=== PATIENT | female | born 1990 | race Caucasian/White ===

== ENCOUNTER 2017-02-27 21:26 | Emergency (ER) | payer OTHER ==
[~2017-02-27] VITALS: Ht 157.5 cm; Wt 92.9 kg
[~2017-02-27 21:26] MED LIST: CEPH-443 PO; NAPR-260 PO; ONDA4TAB8 PO; TRAM50TA2 PO
[2017-02-27 21:34] VITALS: Ht 157.5 cm; Wt 92.9 kg
[2017-02-27 23:06] LABS: URINE BLOOD (Dip) POC Trace-intact (NEGATIVE)
[2017-02-27] MEDS ORDERED: SODIUM CHLORIDE 0.9% 1L BAG IV* STA (23:22)
[2017-02-27] MEDS ORDERED: CEFTRIAXONE 1 GM/50 ML (PMX) 50 ML IVPB STA (23:22)
[2017-02-27 23:49] LABS: BASOPHILS % 0.1 % (0.0-2.0); EOSINOPHILS # 0.2 10^3/ul (0.0-0.5); EOSINOPHILS % 1.9 % (0.0-7.0); HEMATOCRIT 43.1 % (37.0-47.0); HEMOGLOBIN 14.5 g/dl (12.0-16.0); LYMPHOCYTES # 0.8 10^3/ul (0.8-2.9); LYMPHOCYTES % 8.6 % (15.0-51.0); MEAN CORPUSCULAR HEMOGLOBIN 27.9 pg (29.0-33.0); MEAN CORPUSCULAR HGB CONC 33.6 g/dl (32.0-37.0); MEAN PLATELET VOLUME 10.3 fl (7.4-10.4); MONOCYTE # 0.3 10^3/ul (0.3-0.9); MONOCYTES % 3.1 % (0.0-11.0); NEUTROPHIL # 7.7 10^3/ul (1.6-7.5); PLATELET COUNT 357 10^3/UL (140-415); RED BLOOD COUNT 5.19 10^6/ul (4.20-5.40); RED CELL DISTRIBUTION WIDTH 13.1 % (11.5-14.5)
[2017-02-27] MEDS ORDERED: ONDANSETRON 4 MG INJ IV STA (23:49)
[2017-02-28] MEDS: morphine 4 MG/ML VIAL IV STA ×2 (00:03→00:05)
[2017-02-28 00:06] LABS: INR 0.99; PROTIME 13.1 Sec (12.2-14.2)
[2017-02-28 00:07] LABS: PARTIAL THROMBOPLASTIN TIME 28.3 Sec (25.0-35.0)
[2017-02-28] MEDS ORDERED: KETOROLAC 30 MG INJ IV STA (00:08)
[2017-02-28 00:13] LABS: ALANINE AMINOTRANSFERASE 22 IU/L (13-69); ALBUMIN 4.2 g/dl (3.3-4.9); ALBUMIN/GLOBULIN RATIO 0.82; ALKALINE PHOSPHATASE 103 IU/L (42-121); ANION GAP 18 (8-16); ASPARTATE AMINO TRANSFERASE 26 IU/L (15-46); BILIRUBIN,INDIRECT 0.4 mg/dl (0-1.1); BILIRUBIN,TOTAL 0.4 mg/dl (0.2-1.3); BLOOD UREA NITROGEN 15 mg/dl (7-20); CALCIUM 9.2 mg/dl (8.4-10.2); CARBON DIOXIDE 23 mmol/L (21-31); CHLORIDE 107 mmol/L (97-110); CREATININE 0.67 mg/dl (0.44-1.00); GLUCOSE 108 mg/dl (70-220); POTASSIUM 3.6 mmol/L (3.5-5.1); SODIUM 144 mmol/L (135-144); TOTAL PROTEIN 9.3 g/dl (6.1-8.1)
[2017-02-28] MEDS ORDERED: LIDOCAINE/MYLANTA 40 ML BTL PO ONE (00:30)
--- NOTE | 2017-02-28 00:33 | RADRPT ---
PROCEDURE: XR Chest. CLINICAL INDICATION: Chest pain. TECHNIQUE: Portable AP semi erect view of the chest was obtained. COMPARISON: 02/24/2016 FINDINGS: The cardiomediastinal silhouette is within normal limits. The lungs are clear. There is no evidenc e for pleural effusion, pneumothorax or pulmonary vascular congestion. The osseous structures are i ntact with no evidence for acute abnormality. RPTAT:HJJR IMPRESSION: No evidence for acute intrathoracic pathology or interval change from 02/24/2016 allowing for techni antony differences. Physician Dang Date Time Electronically viewed and signed by Physician Dang on 02/28/2017 00:33 JR/
[2017-02-28 00:38] LABS: TROPONIN-I < 0.012 ng/ml (0.00-0.12)
[2017-02-28 00:39] LABS: ADD UMIC YES; UR ASCORBIC ACID NEGATIVE (NEGATIVE); UR BILIRUBIN (Dip) NEGATIVE (NEGATIVE); UR BLOOD (Dip) 1+ mg/dL (NEGATIVE); UR CLARITY SLIGHTLY CLOUDY (CLEAR); UR COLOR YELLOW (YELLOW); UR GLUCOSE (Dip) NEGATIVE (NEGATIVE); UR KETONES (Dip) NEGATIVE (NEGATIVE); UR LEUKOCYTE ESTERASE (Dip) 1+ Leu/ul (NEGATIVE); UR NITRITE (Dip) NEGATIVE (NEGATIVE); UR RBC 25 /HPF (0-5); UR SPECIFIC GRAVITY (Dip) 1.023 (1.003-1.030); UR SQUAMOUS EPITHELIAL CELL FEW /HPF (FEW); UR TOTAL PROTEIN (Dip) 1+ mg/dl (NEGATIVE); UR UROBILINOGEN (Dip) 1+ mg/dL (NEGATIVE)
[2017-02-28] MEDS ORDERED: HYDROCODONE/APAP (5/325) TAB PO ONE (02:00)
[2017-02-28 02:41] VITALS: BP 102/69; PULSE 61; RESP 20; TEMP 97.7
[2017-02-28] MEDS ORDERED: ONDA4TAB11 PO (03:01)
[2017-02-28] MEDS ORDERED: CIPR500T4 PO (03:01)
[2017-02-28] MEDS ORDERED: NAPR-688 PO (03:01)
--- NOTE | 2017-02-28 03:22 | ERD ---
ER Documentation Chief Complaint Chief Complaint PT IN C/O "N/V AND FEVER X 1 DAY". HPI 26-year-old female comes in for nausea vomiting fever for 1 day. Also has abdominal pain is generalized he feels like a dull pain. Has had fever and chills as well as lightheadedness and being extra tired. States that she is otherwise healthy. ROS All systems reviewed and are negative except as per history of present illness. Medications Home Meds Active Scripts Naproxen* (Naproxen*) 500 Mg Tablet, 500 MG PO BID Y for PAIN, #20 TAB Prov:JORDAN MANCUSO DO 02/28/17 Ondansetron (Zofran Odt) 4 Mg Tab.rapdis, 4 MG PO Q6, #20 Prov:JORDAN MANCUSO DO 02/28/17 Ciprofloxacin Hcl* (Ciprofloxacin Hcl*) 500 Mg Tablet, 500 MG PO BID for 7 Days , TAB Prov:JAMEEJORDAN DO 02/28/17 Ondansetron Hcl* (Zofran*) 4 Mg Tablet, 4 MG PO Q6H for NAUSEA AND/OR VOMITING, #30 TAB Prov:JOSH HERRERA PA-C 02/24/16 Naproxen* (Naprosyn*) 500 Mg Tablet, 500 MG PO BID Y for PAIN AND/OR INFLAMMATION, #30 TAB Prov:JOSH HERRERA PA-C 02/24/16 Tramadol HCl (Tramadol HCl) 50 Mg Tablet, 50 MG PO Q4 Y for PAIN, #20 TAB Prov:JOSH HERRERA PA-C 02/24/16 Cephalexin* (Keflex*) 500 Mg Capsule, 500 MG PO QID for 7 Days, CAP Prov:JOSH HERRERAC 02/24/16 Allergies Allergies: Uncoded Allergies: ANXIOLYTIC (NAME UNK) (Allergy, Unknown, palpitations, 02/24/16) PMhx/Soc Medical and Surgical Hx: pt denies Surgical Hx History of Surgery: Yes (l. knee) Anesthesia Reaction: No Hx Alcohol Use: No Hx Substance Use: No Hx Tobacco Use: No Smoking Status: Never smoker Physical Exam Vitals Vital Signs Date Time Temp Pulse Resp B/P Pulse Ox O2 Delivery O2 Flow Rate FiO2 02/28/17 02:41 97.7 61 20 102/69 95 Room Air 02/28/17 01:03 99.2 98 21 112/49 100 Room Air 02/28/17 00:36 98.7 91 22 94/60 97 Room Air 02/27/17 21:34 103.1 103 22 138/71 99 Physical Exam Const: [] Mild to moderate distress, appears uncomfortable Head: Atraumatic Eyes: Normal Conjunctiva ENT: Normal External Ears, Nose and Mouth. Neck: Full range of motion..~ No meningismus. Resp: Clear to auscultation bilaterally Cardio: Regular tachycardia no murmurs Abd: Soft, mild suprapubic pain without guarding or rebound, non distended. Normal bowel sounds Skin: No petechiae or rashes warm to the touch Back: No midline or flank tenderness Ext: No cyanosis, or edema Neur: Awake and alert and oriented 3, no focal deficits Psych: Somewhat anxious Result Diagram: 02/27/170 02/27/172249 Results 24 hrs Laboratory Tests Test 02/27/17 22:50 02/27/17 23:04 02/28/17 01:40 White Blood Count 9.010^3/ul Red Blood Count 5.1910^6/ul Hemoglobin 14.5g/dl Hematocrit 43.1% Mean Corpuscular Volume 83.0fl Mean Corpuscular Hemoglobin 27.9pg Mean Corpuscular Hemoglobin Concent 33.6g/dl Red Cell Distribution Width 13.1% Platelet Count 16717^3/UL Mean Platelet Volume 10.3fl Neutrophils % 86.0% Lymphocytes % 8.6% Monocytes % 3.1% Eosinophils % 1.9% Basophils % 0.1% Nucleated Red Blood Cells % 0.0/100WBC Neutrophils # 7.710^3/ul Lymphocytes # 0.810^3/ul Monocytes # 0.310^3/ul Eosinophils # 0.210^3/ul Basophils # 0.010^3/ul Nucleated Red Blood Cells # 0.010^3/ul Prothrombin Time 13.1Sec Prothrombin Time Ratio 1.0 INR International Normalized Ratio 0.99 Activated Partial Thromboplast Time 28.3Sec Urine Color YELLOW Urine Clarity SLIGHTLY CLOUDY Urine pH 8.0 Urine Specific [place] 1.023 Urine Ketones NEGATIVEmg/dL Urine Nitrite NEGATIVEmg/dL Urine Bilirubin NEGATIVEmg/dL Urine Urobilinogen 1+mg/dL Urine Leukocyte Esterase 1+Kajal/ul Urine Microscopic RBC 25/HPF Urine Microscopic WBC 7/HPF Urine Squamous Epithelial Cells FEW/HPF Urine Hemoglobin 1+mg/dL Urine Glucose NEGATIVEmg/dL Urine Total Protein 1+mg/dl Sodium Level 144mmol/L Potassium Level 3.6mmol/L Chloride Level 107mmol/L Carbon Dioxide Level 23mmol/L Anion Gap 18 Blood Urea Nitrogen 15mg/dl Creatinine 0.67mg/dl Glucose Level 108mg/dl Lactic Acid Level 2.3mmol/L 1.4mmol/L Calcium Level 9.2mg/dl Total Bilirubin 0.4mg/dl Direct Bilirubin 0.00mg/dl Indirect Bilirubin 0.4mg/dl Aspartate Amino Transf (AST/SGOT) 26IU/L Alanine Aminotransferase (ALT/SGPT) 22IU/L Alkaline Phosphatase 103IU/L Troponin I < 0.012ng/ml Total Protein 9.3g/dl Albumin 4.2g/dl Globulin 5.10g/dl Albumin/Globulin Ratio 0.82 Bedside Urine pH (LAB) 8.5 Bedside Urine Protein (LAB) 1+ Bedside Urine Glucose (UA) Negative Bedside Urine Ketones (LAB) Negative Bedside Urine Blood Trace-intact Bedside Urine Nitrite (LAB) Negative Bedside Urine Leukocyte Esterase (L 1+ Current Medications Medications (Trade) Dose Ordered Sig/Svetlana Route PRN Reason Start Time Stop Time Status Last Admin Dose Admin Sodium Chloride 2880 ml 2,880 ml BOLUS OVER 2 HOURS STAT IV* 02/27/17 23:22 02/27/17 23:24 DC 02/27/17 23:39 Ceftriaxone Sodium (Rocephin) 50 ml @ 100 mls/hr ONCE STAT IVPB 02/27/17 23:22 02/27/17 23:51 DC 02/27/17 23:39 Morphine Sulfate (morphine) 4 mg ONCE STAT IV 02/27/17 23:49 02/27/17 23:51 DC Ondansetron HCl (Zofran Inj) 4 mg ONCE STAT IV 02/27/17 23:49 02/27/17 23:51 DC 02/28/17 00:03 Ketorolac Tromethamine (Toradol) 30 mg ONCE STAT IV 02/28/17 00:08 02/28/17 00:10 DC 02/28/17 00:15 Miscellaneous Medication (Gi Cocktail (2)) 40 ml ONCE ONCE PO 02/28/17 00:30 02/28/17 00:31 DC 02/28/17 00:15 Acetaminophen/ Hydrocodone Bitart ([place] (5/325)) 1 tab ONCE ONCE PO 02/28/17 02:00 02/28/17 02:01 DC 02/28/17 02:00 Procedures/MDM UTI that meet sepsis criteria. She was extremely uncomfortable. Stated that she did have chest pain and left upper quadrant but no signs of ischemia with a normal EKG and negative troponin. She was hydrated with a liter of normal saline as well as given Zofran, morphine and Rocephin empirically. She refused the morphine which she thinks causes her problems. She was then given Toradol. She is not . Vital signs were stabilized in the emergency room. Patient initially stated that she wanted to be admitted she was feeling bad. She then changed her mind stated that she prefer to be discharged. She is otherwise healthy and is young female and her vital signs have been stabilized in the emergency room I am going to discharge her with instructions to follow- up with primary care doctor in the next 2 days as well as return to the emergency room immediately if she has any concerning symptoms. EKG interpretation: Normal sinus rhythm rate of 87, normal axis, no ST or T- wave changes concerning for acute ischemia, normal intervals. Normal log sawyer interpretation: Sinus tachycardia followed by normal sinus rhythm. No other arrhythmias Chest x-ray interpretation: I see no acute process, see no wide mediastinum, pneumothorax, no infiltrates, no fractures Critical care time 35 minutes: This includes treatment of sepsis secondary UTI, early empiric antibiotic therapy, treatment of unstable vital signs, multiple visits patient's bedside to reassess status, discussion with patient's significant other as well as patient at length, review of chart. This does not include any billable procedures. Departure Diagnosis: Primary Impression: Sepsis secondary to UTI Condition: Stable Patient Instructions: Understanding Urinary Tract Infections (UTIs) Additional Instructions: Call your primary care doctor TOMORROW for an appointment during the next 2-3 days.See the doctor sooner or return here if your condition worsens before your appointment time. JORDAN MANCUSO DO Feb 28, 2017 03:21
== END 2017-02-28 03:11 | disposition home or self-care (01) ==
LOC: E/R 21:26
DX: A41.9 Sepsis, unspecified organism (principal); N39.0 Urinary tract infection, site not specified; R07.9 Chest pain, unspecified
CPT/HCPCS: 36415; 71010; 80053; 81001; 83605; 84484; 85025; 85610; 85730; 87040; 87086; 93005; 96374; 96375; 99285; J0696; J1885; J2270; J2405; J7030; 81003